=== PATIENT | female | born 2000 | race Two or more races ===

== ENCOUNTER 2025-03-30 18:47 | Emergency (ER) | payer SELFPAY ==
[~2025-03-30] VITALS: Ht 172.7 cm; Wt 59.0 kg
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
[2025-03-30 20:08] LABS: Hematocrit 37.9 % (36.0-46.0); Hemoglobin 12.6 g/dL (12.2-16.2); Mean Corpuscular Hemoglobin 27.1 pg (28.0-32.0); Mean Corpuscular Volume 81.2 fL (80.0-100.0); Nucleated Red Blood Cells % 0.1 %
[2025-03-30 20:16] LABS: Chloride 105 mmol/L (98-107); Potassium 3.6 mmol/L (3.5-5.1); Sodium 141 mmol/L (136-145)
[2025-03-30 20:17] LABS: Anion Gap 9 (5-15); Carbon Dioxide 27 mmol/L (20-31)
[2025-03-30 20:18] LABS: Calcium 9.8 mg/dL (8.7-10.4)
[2025-03-30 20:22] LABS: BUN/Creatinine Ratio 8.1 (10.0-20.0); Glucose 104 mg/dL (74-106)
[2025-03-30 20:30] LABS: Blood Urea Nitrogen 7 mg/dL (9-23)
[2025-03-30] MEDS: HALOPERIDOL LACTATE 5 MG/ML INJ VIAL IM ONE (20:41)
[2025-03-30] MEDS: HALOPERIDOL LACTATE 5 MG/ML INJ VIAL ONE (20:45)
[2025-03-30 21:00] VITALS: BP 116/58; RESP 15; TEMP 98.3
[2025-03-30 21:15] VITALS: PULSE 60; O2SAT 98
[2025-03-30 22:34] LABS: Urine Protein, UAD Negative (Negative)
[2025-03-30 22:52] LABS: Amphetamine Screen, Urine Neg (NEGATIVE); Barbiturate Scree,Urine Neg (NEGATIVE); Benzodiazephine Screen, Urine Neg (NEGATIVE); Cannabinoid Screen, Urine Pos (NEGATIVE); Cocaine Screen, Urine Neg (NEGATIVE); Opiate Scree,Urine Neg (NEGATIVE); Phencyclidine Screen, Urine Neg (NEGATIVE)
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
[2025-03-31] MEDS ORDERED: OLAN1TAB7 PO (03:44)
== END 2025-03-31 03:59 | disposition home or self-care (01) ==
LOC: EDBD 18:47 → ER 18:47
DX: R45.851 Suicidal ideations (principal); F06.1 Catatonic disorder due to known physiological condition
CPT/HCPCS: 36415; 80048; 80307; 81001; 81025; 85025; 96372; 99285; J1630